=== PATIENT | male | born 1950 | race Caucasian/White ===

== ENCOUNTER 2017-01-18 02:16 | Inpatient (IN) | payer OTHER ==
[~2017-01-18] VITALS: Ht 175.3 cm; Wt 73.0 kg
[2017-01-18] VITALS (7 sets, daily range): BP systolic 132–168; BP diastolic 67–105; PULSE 70–97; TEMP 36.6–36.9; O2SAT 95–100; Ht 175.3 cm; Wt 73.0 kg
[2017-01-18] MEDS ORDERED: SODIUM CHLORIDE 0.9% 1000ML 1,000 ML IV STA (02:43)
--- NOTE | 2017-01-18 02:44 | EMERGENCY ROOM VISIT NOTE ---
History Report prepared by Emilio: Wilson Monroe Under the Supervision of: Dr. Nicholas Wright M.D. First contact with patient: 02:31 Chief Complaint: CARDIAC ASSESSMENT Stated Complaint: ICD WENT OFF AT 1AM 2X, DELIVERED SHOCK THERAPY Nursing Triage Summary: pt reports AICD delivered shock X 2 around 0100 after walkin to restroom, pt denies cp or sob History of Present Illness The patient is a 66 year old male who presents to the Emergency Room for a cardiac assessment because his ICD went off twice while he got up tonight. The patient states that he got up to go to the bathroom, and it went off, though he did not feel any palpitations. He additionally states that his blood pressure was 195/70. He states that he has had the pacemaker. for the past five years. The patient also states that he has sleep apnea and uses a CPAP. He states that he has felt fine recently, and he has not had any recent traumas. He states that he went on a long walk yesterday. The patient states that he takes aspiring every day, and he denies nay chest pain. The patient states that he has high blood pressure, though he denies any diabetes, high cholesterol, or history of smoking. He additionally states that he has a family history of heart attacks, and he had a history of a rheumatic fever when he was younger. He also states that he drank coffee over the weekend. Source of History: patient Onset: prior to arrival Position: other (global) Quality: other (cardiac assessment) Associated Symptoms: No chest pain Review of Systems See HPI for pertinent positives & negatives. A total of 10 systems reviewed and were otherwise negative. Past Medical & Surgical Medical Problems: (1) Elevated troponin (2) Pacemaker (3) Sleep apnea (4) Ventricular fibrillation Family History FH: heart attack Social History Smoking Status: Never Smoker Marital Status: Housing Status: lives with family Occupation Status: employed Current/Historical Medications Scheduled Ascorbic Acid (Ascorbic Acid), 500 MG PO DAILY Aspirin (Aspirin 81), 81 MG PO DAILY Dofetilide (Tikosyn), 500 MCG PO BID Fish Oil ([place]-3), 1 CAP PO DAILY Multiple Vitamins W/ Iron (Multi Vitamin with Iron), 1 TAB PO DAILY Olmesartan/Hctz (Benicar Hct 40/12.5), 1 TAB PO DAILY [sunny hips], 1 DOSE PO DAILY Scheduled PRN Ranitidine HCl (Ranitidine 75), 75 MG PO DAILY PRN for Heartburn Allergies Coded Allergies: Erythromycin (Verified Allergy, Unknown, unknown, 01/18/17) Physical Exam Vital Signs Date Time Temp Pulse Resp B/P (MAP) Pulse Ox O2 Delivery O2 Flow Rate FiO2 01/18/17 02:37 70 01/18/17 02:26 36.6 71 18 173/97 96 Room Air Physical Exam GENERAL: Patient is well appearing and in no acute distress. HEENT: No acute trauma, normocephalic atraumatic, mucous membranes moist, no nasal congestion, no scleral icterus. NECK: No stridor, no adenopathy, no meningismus, trachea is midline. LUNGS: No dyspnea. Clear to auscultation and equal bilaterally. No wheeze, no rhonchi. HEART: Regular rate and rhythm. No murmurs, rubs, gallops appreciated. ABDOMEN: Soft, nontender, bowel sounds positive, no masses appreciated, no peritonitis. BACK: No midline tenderness, no CVA tenderness EXTREMITIES: Normal motion all extremities, no cyanosis, no edema. NEUROLOGIC: Alert and oriented, no acute motor or sensory deficits, no focal weakness, cranial nerves grossly intact. SKIN: No rash, no jaundice, no diaphoresis. Medical Decision & Procedures ER Provider Diagnostic Interpretation: X ray results are stated below per my interpretation: Chest: 1 view: No infiltrate, no effusion, normal cardiac border. ICD in the left upper chest. Leads appear to be intact. Laboratory Results 01/18/17 02:56 Red Blood Count 5.48, Mean Corpuscular Volume 84.7, Mean Corpuscular Hemoglobin 28.3, Mean Corpuscular Hemoglobin Concent 33.4, Mean Platelet Volume 9.1, Neutrophils (%) (Auto) 65.6, Lymphocytes (%) (Auto) 24.3, Monocytes (%) (Auto) 8.1, Eosinophils (%) (Auto) 1.3, Basophils (%) (Auto) 0.5, Neutrophils # (Auto) 4.13, Lymphocytes # (Auto) 1.53, Monocytes # (Auto) 0.51, Eosinophils # (Auto) 0.08, Basophils # (Auto) 0.03 01/18/17 02:56 Test 01/18/17 02:56 White Blood Count 6.29 K/uL (4.8-10.8) Red Blood Count 5.48 M/uL (4.7-6.1) Hemoglobin 15.5 g/dL (14.0-18.0) Hematocrit 46.4 % (42-52) Mean Corpuscular Volume 84.7 fL (80-100) Mean Corpuscular Hemoglobin 28.3 pg (25-34) Mean Corpuscular Hemoglobin Concent 33.4 g/dl (32-36) Platelet Count 118 K/uL (130-400) Mean Platelet Volume 9.1 fL (7.4-10.4) Neutrophils (%) (Auto) 65.6 % Lymphocytes (%) (Auto) 24.3 % Monocytes (%) (Auto) 8.1 % Eosinophils (%) (Auto) 1.3 % Basophils (%) (Auto) 0.5 % Neutrophils # (Auto) 4.13 K/uL (1.4-6.5) Lymphocytes # (Auto) 1.53 K/uL (1.2-3.4) Monocytes # (Auto) 0.51 K/uL (0.11-0.59) Eosinophils # (Auto) 0.08 K/uL (0-0.5) Basophils # (Auto) 0.03 K/uL (0-0.2) RDW Standard Deviation 38.8 fL (36.4-46.3) RDW Coefficient of Variation 12.6 % (11.5-14.5) Immature Granulocyte % (Auto) 0.2 % Immature Granulocyte # (Auto) 0.01 K/uL (0.00-0.02) Prothrombin Time 11.2 SECONDS (9.0-12.0) Prothromb Time International Ratio 1.0 (0.9-1.1) Activated Partial Thromboplast Time 24.5 SECONDS (21.0-31.0) Partial Thromboplastin Ratio 0.9 Anion Gap 7.0 mmol/L (3-11) Est Creatinine Clear Calc Drug Dose 83.9 ml/min Estimated GFR () 104.7 Estimated GFR (Non- 90.4 BUN/Creatinine Ratio 23.9 (10-20) Calcium Level 8.8 mg/dl (8.5-10.1) Magnesium Level 2.1 mg/dl (1.8-2.4) Total Creatine Kinase 223 U/L (39-308) Creatine Kinase MB 12.3 ng/ml (0.5-3.6) Creatine Kinase MB Ratio 5.5 (0-3.0) Troponin I 1.110 ng/ml (0-0.045) Laboratory results as reviewed by me. Medications Administered Medications (Trade) Dose Ordered Sig/[place] Route Start Time Stop Time Status Last Admin Dose Admin Sodium Chloride 1,000 ml @ 999 mls/hr Q1H1M STAT IV 01/18/17 02:43 01/18/17 03:43 DC 01/18/17 02:43 999 MLS/HR Aspirin (Aspirin Chew) 324 mg NOW STAT PO 01/18/17 03:59 01/18/17 04:00 DC 01/18/17 04:05 324 MG Potassium Chloride (Klor-Con M10) 40 meq NOW STAT PO 01/18/17 04:13 01/18/17 04:20 DC 01/18/17 04:47 40 MEQ ECG Indication: other (cardiac assessment) Rate (beats per minute): 70 Rhythm: other (Atrial paced) Findings: no acute ischemic change, paced rhythm, no ectopy ED Course 0231: The patient was evaluated in room B10. A complete history and physical exam was performed. 0243: Sodium Chloride 1000 ml @ 999 mls/hr IV 0325: I reevaluated the patient, and he was feeling good and in no distress. 0346: I reassessed the patient, and he was feeling well. 0353: I discussed the patient's case with Dr. Noriega, Cardiology, and he agrees with holding off the heparin and to bring in the patient for further monitoring. 0359: Aspirin 324mg PO 0403: I reevaluated the patient, and he was doing well. 0404: Discussed the patient's case with Dr. Gonzalez. The patient will be evaluated for further treatment and disposition. 0423: I reassessed the patient, and he states that he is feeling well. Medical Decision Differential: NSR, SVT, PACs, PVCs, Cardiac Dysrhythmia, Endocrine Dysfunction, Eletrolyte/Metabolic Abnormality, Pulmonary Embolism, Infectious, GI, amongst other pathologies entertained. 66 yr old male with history of rheumatic fever as child who had bradycardia 5 yrs ago resulting in ICD/Pacer placement. Since then well on Tikosyn. This evening with two consecutive ICD discharges. No chest pain nor other ACS symptoms. Interrogation of ICD reveals Vfib episode at 0:34 which required second defibrillation to break. Trop and CK MB elevated, though this likely is defib. Reviewed with Cards and will hold off on heparin at this time. Will need to come in for close monitoring and cardiology evaluation. Patient and comfortable with this plan. Medication Reconcilliation Current Medication List: was personally reviewed by me Blood Pressure Screening Patient's blood pressure: Elevated blood pressure Monitored by hospitalist Consults Time Called: 035 Consulting Physician: Dr. Noriega, Cardiology Returned Call: [phone] I discussed the patient's case with Dr. Noriega, Cardiology, and he agrees with holding off the heparin and to bring in the patient for further monitoring. Additional Consults: Time Called: 040 Consulted Physician: Dr. Gonzalez Returned Call: [phone] Additional Comments: Discussed the patient's case with Dr. Gonzalez. The patient will be evaluated for further treatment and disposition. Impression Primary Impression: Ventricular fibrillation Additional Impressions: ICD (implantable cardioverter-defibrillator) discharge Elevated troponin Scribe Attestation The scribe's documentation has been prepared under my direction and personally reviewed by me in its entirety. I confirm that the note above accurately reflects all work, treatment, procedures, and medical decision making performed by me. Departure Information Dispostion Being Evaluated By Hospitalist Referrals Geo Hebert (PCP) Patient Instructions My [facility] Problem Qualifiers
[2017-01-18 03:09] LABS: BASO % 0.5 %; BASO ABS # 0.03 K/uL (0-0.2); COMPLETE YES; EOS % 1.3 %; HEMATOCRIT 46.4 % (42-52); IG% 0.2 %; LYMPH % 24.3 %; LYMPH ABS # 1.53 K/uL (1.2-3.4); MEAN CELL VOLUME 84.7 fL (80-100); MEAN CORPUSCULAR HEMOGLOBIN 28.3 pg (25-34); MEAN CORPUSCULAR HGB CONC 33.4 g/dl (32-36); MEAN PLATELET VOLUME 9.1 fL (7.4-10.4); MONO % 8.1 %; NEUT % 65.6 %; PLATELET COUNT 118 K/uL (130-400); RED BLOOD COUNT 5.48 M/uL (4.7-6.1); WHITE BLOOD COUNT 6.29 K/uL (4.8-10.8)
[2017-01-18 03:26] LABS: BUN/CREATININE RATIO 23.9 (10-20); CALCIUM 8.8 mg/dl (8.5-10.1); CREATININE 0.89 mg/dl (0.60-1.40); MAGNESIUM 2.1 mg/dl (1.8-2.4); POTASSIUM 3.4 mmol/L (3.5-5.1)
[2017-01-18] MEDS ORDERED: ASPI-435 PO (03:46)
[2017-01-18] MEDS ORDERED: DOFE500C PO (03:46)
[2017-01-18] MEDS ORDERED: RANI1TAB75 PO (03:46)
[2017-01-18] MEDS ORDERED: OMEG10007 PO (03:46)
[2017-01-18] MEDS ORDERED: rose hips PO (03:46)
[2017-01-18] MEDS ORDERED: MULT-1028 PO (03:46)
[2017-01-18] MEDS ORDERED: OLME40TA30 PO (03:46)
[2017-01-18] MEDS ORDERED: ASCO500T16 PO (03:46)
[2017-01-18 03:48] LABS: CKMB/CK RATIO 5.5 (0-3.0)
[2017-01-18 03:59] LABS: PARTIAL THROMBOPLASTIN RATIO 0.9; PROTHROMBIN TIME (PATIENT) 11.2 SECONDS (9.0-12.0)
[2017-01-18] MEDS ORDERED: ASPIRIN 324 MG CHEW PO STA (03:59)
[2017-01-18] MEDS ORDERED: POTASSIUM CHLORIDE 10 MEQ TABCR PO STA (04:13)
[2017-01-18] MEDS ORDERED: NITROGLYCERIN 0.4 MG SL PER TAB CHARGE SL PRN (04:15)
[2017-01-18] MEDS ORDERED: MoRPHine SULFATE 2 MG/ML CARP IV PRN (04:15)
[2017-01-18] MEDS ORDERED: POLYETHYLENE (MIRALAX) 17 GM PACK PO PRN (04:15)
[2017-01-18] MEDS ORDERED: ONDANSETRON INJ 2 MG/ML 2 ML VIAL IV PRN (04:15)
[2017-01-18] MEDS ORDERED: ACETAMINOPHEN 325 MG TAB PO PRN (04:15)
--- NOTE | 2017-01-18 05:36 | History and Physical ---
History & Physical Date & Time of Service: Jan 18, 2017 at 05:29 Chief Complaint: Elevated Troponin, Ventricular Fibrillation Primary Care Physician: Geo Hebert History of Present Illness Source: patient, family This is a 66 yo m that has a history of pacer/ ICD placement in 2011 for sick sinus syndrome that is presenting to us after having experienced two separate episodes of discharges from the ICD for arrhythmias. The patient had suffered from sick sinus syndrome in the past secondary to a rheumatic fever infection he had as a child. He was sent to [facility] where a ICD was placed. His physician has since retired and he has not been following with an EP bath mixer since. He has never had his ICD discharge in the past. He notes that this morning he was shocked approx a minute apart and was concerned so he came to the ED for evaluation. He denies having any chest pain, SOB, palpitations, presyncope prior to the discharges. While in the ED, Dr Noriega was contacted by the ED physician and plan was for observation. Patient currently denies any chest pain and " feels well'. Past Medical/Surgical History Sick sinus syndrome HTN Pacer/ ICD rheumatic fever Family History FH: heart attack Social History Smoking Status: Never Smoker Smokeless Tobacco Use: No Alcohol Use: none Drug Use: none Marital Status: Housing status: lives with family Occupational Status: employed Immunizations History of Influenza Vaccine: Unknown History of Tetanus Vaccine?: Unknown History of Pneumococcal: Unknown History of Hepatitis B Vaccine: Unknown Multi-Drug Resistant Organisms History of MDRO: No Allergies Coded Allergies: Erythromycin (Verified Allergy, Unknown, unknown, 01/18/17) Home Medications Scheduled Ascorbic Acid (Ascorbic Acid), 500 MG PO DAILY Aspirin (Aspirin 81), 81 MG PO DAILY Dofetilide (Tikosyn), 500 MCG PO BID Fish Oil ([place]-3), 1 CAP PO DAILY Metoprolol Succ (Toprol Xl) (Toprol-Xl), 25 MG PO DAILY Multiple Vitamins W/ Iron (Multi Vitamin with Iron), 1 TAB PO DAILY Olmesartan/Hctz (Benicar Hct 40/12.5), 1 TAB PO DAILY [sunny hips], 1 DOSE PO DAILY Scheduled PRN Ranitidine HCl (Ranitidine 75), 75 MG PO DAILY PRN for Heartburn Review of Systems Constitutional: No fever Eyes: No worsening of vision ENT: No hearing loss Respiratory: No cough, No sputum, No wheezing, No shortness of breath, No dyspnea on exertion, No dyspnea at rest Cardiovascular: + problem reported, No chest pain Abdomen: No pain, No nausea, No vomiting, No diarrhea, No constipation Musculoskeletal: No joint pain, No muscle pain Genitourinary - Male: No hematuria Neurologic: No weakness, No numbness/tingling, No balance problems Psychiatric: No depression symptoms Endocrine: No fatigue Hematologic / Lymphatic: No abnormal bleeding/bruising Integumentary: No rash Physical Exam Vital Signs Date Time Temp Pulse Resp B/P (MAP) Pulse Ox O2 Delivery O2 Flow Rate FiO2 01/18/17 04:17 71 18 157/97 97 Room Air 01/18/17 02:37 70 01/18/17 02:26 36.6 71 18 173/97 96 Room Air General Appearance: no apparent distress Head: normocephalic, atraumatic Eyes: normal inspection ENT: normal ENT inspection Neck: supple Respiratory/Chest: normal breath sounds, no respiratory distress, no accessory muscle use Cardiovascular: regular rate, rhythm, no murmur, normal peripheral pulses Abdomen/GI: normal bowel sounds, non tender, soft, no organomegaly Back: normal inspection, no CVA tenderness Extremities/Musculoskelatal: no calf tenderness, no pedal edema, normal range of motion Neurologic/Psych: alert, normal mood/affect, oriented x 3 Skin: normal color, warm/dry, no rash Lymphatic: no adenopathy Diagnostics Laboratory Results Results Past 24 Hours Test 01/18/17 02:56 Range/Units White Blood Count 6.29 4.8-10.8 K/uL Red Blood Count 5.48 4.7-6.1 M/uL Hemoglobin 15.5 14.0-18.0 g/dL Hematocrit 46.4 42-52 % Mean Corpuscular Volume 84.7 80-100 fL Mean Corpuscular Hemoglobin 28.3 25-34 pg Mean Corpuscular Hemoglobin Concent 33.4 32-36 g/dl Platelet Count 118 130-400 K/uL Mean Platelet Volume 9.1 7.4-10.4 fL Neutrophils (%) (Auto) 65.6 % Lymphocytes (%) (Auto) 24.3 % Monocytes (%) (Auto) 8.1 % Eosinophils (%) (Auto) 1.3 % Basophils (%) (Auto) 0.5 % Neutrophils # (Auto) 4.13 1.4-6.5 K/uL Lymphocytes # (Auto) 1.53 1.2-3.4 K/uL Monocytes # (Auto) 0.51 0.11-0.59 K/uL Eosinophils # (Auto) 0.08 0-0.5 K/uL Basophils # (Auto) 0.03 0-0.2 K/uL RDW Standard Deviation 38.8 36.4-46.3 fL RDW Coefficient of Variation 12.6 11.5-14.5 % Immature Granulocyte % (Auto) 0.2 % Immature Granulocyte # (Auto) 0.01 0.00-0.02 K/uL Prothrombin Time 11.2 9.0-12.0 SECONDS Prothromb Time International Ratio 1.0 0.9-1.1 Activated Partial Thromboplast Time 24.5 21.0-31.0 SECONDS Partial Thromboplastin Ratio 0.9 Sodium Level 146 136-145 mmol/L Potassium Level 3.4 3.5-5.1 mmol/L Chloride Level 110 98-107 mmol/L Carbon Dioxide Level 29 21-32 mmol/L Anion Gap 7.0 3-11 mmol/L Blood Urea Nitrogen 21 7-18 mg/dl Creatinine 0.89 0.60-1.40 mg/dl Est Creatinine Clear Calc Drug Dose 83.9 ml/min Estimated GFR () 104.7 Estimated GFR (Non- 90.4 BUN/Creatinine Ratio 23.9 10-20 Random Glucose 101 70-99 mg/dl Calcium Level 8.8 8.5-10.1 mg/dl Magnesium Level 2.1 1.8-2.4 mg/dl Total Creatine Kinase 223 39-308 U/L Creatine Kinase MB 12.3 0.5-3.6 ng/ml Creatine Kinase MB Ratio 5.5 0-3.0 Troponin I 1.110 0-0.045 ng/ml Impression Assessment and Plan This is a 66 yo m that possibly suffered from an arrhythmia which led to a discharge of his ICD which was placed for sick sinus syndrome Arrhythmia with elevated troponin - tele status - consult [facility] - device interrogation - trend troponin HTN - continue benicar or its equivalent - continue asa 81 mg daily DVT Prophylaxis - heparin bid Attending Addendum: I have physically seen and examined this patient, have supervised the medical residents activities, and agree with the H&P as noted above with the following exceptions as noted. The patient presents to the emergency department after 2 episodes of ICD firing approximately 1 minute apart the morning of admission, which has never happened to him in the past. The patient denies chest pain, palpitations, shortness of breath, cough, lower extremity swelling, sore throat, fevers, chills, sweats, weight change, fatigue , nausea, vomiting, abdominal pain, pelvic pain, blood in urine or stool, dysuria, urinary frequency or urgency, lightheadedness, dizziness, headache, memory loss, rash, abnormal bruising or bleeding, imbalance, focal or generalized weakness, numbness or tingling in arms or legs, generalized arthralgias or myalgias, back or neck pain, night sweats. The review of systems is otherwise negative other than for that already noted above, and at least 10 systems have been reviewed. The patient is awake, well-developed and adequately nourished, alert and oriented 3, normocephalic and atraumatic, lying in bed and in no acute distress. HEENT--PERRL, EOMI, mucous membranes and oropharynx dry. Neck--supple, no JVD or bruits, thyroid normal, trachea midline, no adenopathy. Heart--normal S1 and S2, no extra beats, no murmurs, rubs or gallops. Lungs--clear bilaterally with good air movement, no respiratory distress, no accessory muscle use. Abdomen--normal bowel sounds and soft, nontender and nondistended, no hernias or masses, no organomegaly. Extremities--no cyanosis, clubbing or edema. There are good distal pulses b/l. Dermatologic--normal skin turgor, normal color, warm and dry, no abnormal lymph nodes, no rash. Neurologic--cranial nerves II through XII grossly intact. Rheumatologic--normal range of motion, nontender, muscles and joints. Psychiatric--normal affect. Assessment and Plan: 1. Sick sinus syndrome/status post AICD placement/status post 2 discharges today/elevated troponin/hypertension--The patient will be admitted to telemetry for serial cardiac enzymes, cardiac rhythm monitoring and a 2-D echocardiogram with Dopplers. Continue aspirin 81 mg by mouth daily, Benicar 40 mg by mouth daily and Tikosyn 500 g by mouth twice a day. Consult cardiology. Device interrogation. Level of Care Telemetry Advanced Directives Existing Advance Directive: No Existing Living Will: No Existing Power of Technical Proposal Writer: No Resuscitation Status FULL RESUSCITATION VTE Prophylaxis VTE Risk Assessment Done? Y/N: Yes Risk Level: Moderate Given or contraindicated: Unfractionated heparin SQ Social Service Consult None Apply Note Total Time: Critical Care 30 - 74 minutes Additional Copies To Geo Hebert
[2017-01-18] MEDS ORDERED: RANITIDINE HCL 150 MG TAB PO PRN (05:45)
--- NOTE | 2017-01-18 07:16 | DIAGNOSTIC IMAGING REPORT ---
SINGLE VIEW CHEST CLINICAL HISTORY: ICD defibrillator. FINDINGS: An AP, portable, upright chest radiograph is obtained. No prior studies are available for comparison at the time of dictation. The examination is degraded by portable technique and patient rotation. A 2-lead cardiac AICD is in place. This partially obscures the left lower chest. The heart is enlarged and there is atherosclerotic calcification of the thoracic aorta. The pulmonary vasculature is noncongested. The lungs and pleural spaces are clear. No pneumothorax is seen. The bony thorax is grossly intact. IMPRESSION: 1. Cardiomegaly and AICD. There is no radiographic evidence of congestive failure. 2. No airspace consolidation or pleural effusion is identified. Electronically signed by: Tim Lei M.D. 01/18/2017 7:14 AM Dictated Date/Time: 01/18/2017 7:13 AM
[2017-01-18] MEDS ORDERED: [UNRECOGNIZED DRUG - OTHER] PO SCH (09:00)
[2017-01-18] MEDS ORDERED: ASPIRIN 81 MG ECTAB PO SCH ×2 (09:00→21:00)
[2017-01-18] MEDS ORDERED: HYDROCHLOROTHIAZIDE 25 MG TAB PO SCH (09:00)
[2017-01-18] MEDS ORDERED: HEPARIN SOD 5000 UNIT/0.5 ML CARP SQ SCH ×2 (09:00)
[2017-01-18] MEDS ORDERED: CEROVITE ADV FORMULA TAB PO SCH (09:00)
[2017-01-18] MEDS ORDERED: OLMESARTAN MEDOXOMIL 40 MG TAB PO SCH (09:00)
[2017-01-18] MEDS ORDERED: OMEGA-3 (PURIFIED FISH OIL) 1 GM CAP PO SCH (09:00)
[2017-01-18] MEDS ORDERED: ASCORBIC ACID 500 MG TAB PO SCH (09:00)
[2017-01-18] MEDS ORDERED: DOFETILIDE 125 MCG CAP PO SCH (09:00)
[2017-01-18] MEDS ORDERED: NURSING DECISION MEDICATION ORDER SCH (09:30)
--- NOTE | 2017-01-18 10:19 | Medical Student: [facility] ---
Med Student Progress Note Date of Service Jan 18, 2017. Subjective Pt evaluation today including: conversation w/ patient, physical exam, chart review, lab review, review of studies Pain: patient denies PO Intake: tolerating PO diet Voiding: no voiding problems, no incontinence Anthony Ledbetter is a 66 yo male, with PMHx of bradycardia (s/p ICD/defibrillator placement July 2011), HTN, and VANCE, presented to the ED complaining of his defibrillator discharging twice last night between midnight and 1am. He notes he was awake before the event, secondary to needing to use the restroom, and denies any presyncopal symptoms. 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 Patient denies any previous defibrillations since placement, any chest pain/ palpitations, any recent symptoms, or being recently followed by a veterinary assistant. Patient reports drinking slightly more caffeine over the weekend than usual (2-3 cups of regular coffee, instead of his 1 cup of decaf and 1 cup of regular coffee at baseline). He notes he takes his Tikosyn (Dofetilide) 500 Mcg Cap 500 Mcg PO BID as prescribed. Patient denies any associated symptoms of fever, chills, fatigue, vision/hearing problems, sore throat, nasal congestion, post nasal drip, cough, shortness of breath, wheezing, chest pain, palpitations , swollen lymph nodes, rash, abdominal pain, nausea, vomiting, diarrhea, constipation, changes in his urination/stooling, and difficulty moving his extremities/joints. 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 Review of Systems Constitutional: No fever, No chills, No sweats, No weight loss, No fatigue Eyes: No worsening of vision, No eye pain, No redness ENT: No hearing loss, No nasal symptoms, No sore throat Respiratory: No cough, No shortness of breath Cardiac: No chest pain, No edema, No palpitations Abdomen: No pain, No nausea, No vomiting, No diarrhea, No constipation Musculoskeletal: No joint pain, No muscle pain, No swelling Male : No dysuria, No urinary frequency, No incontinence, No nocturia more than once/night (at baseline awakens multiple times to urinate each night ( patient thinks secondary to water intake during day)) Neurologic: No memory loss, No weakness, No numbness/tingling Heme: No abnormal bleeding/bruising, No swollen lymph nodes Endo: No fatigue, No excessive urination (at baseline) Skin: No rash, No itch Objective Vital Signs Date Time Temp Pulse Resp B/P (MAP) Pulse Ox O2 Delivery O2 Flow Rate FiO2 01/18/17 08:03 36.9 76 18 151/88 (109) 95 01/18/17 08:00 Room Air 01/18/17 05:29 36.6 70 18 137/67 95 Room Air 01/18/17 04:17 71 18 157/97 97 Room Air 01/18/17 02:37 70 01/18/17 02:26 36.6 71 18 173/97 96 Room Air Physical Exam General Appearance: WD/WN, no apparent distress Eyes: bilateral eyes normal inspection, bilateral eyes PERRL (small pupils, difficult to to quantify reaction to light) ENT: normal ENT inspection, hearing grossly normal, pharynx normal Neck: supple, no adenopathy Respiratory/Chest: chest non-tender, lungs clear, normal breath sounds, no respiratory distress, no accessory muscle use Cardiovascular: regular rate, rhythm, no edema, no murmur Abdomen: normal bowel sounds, non tender, soft Extremities: normal range of motion, non-tender, normal inspection, no pedal edema, no calf tenderness Neurologic/Psychiatric: no motor/sensory deficits, alert, normal mood/affect, oriented x 3 Skin: normal color, warm/dry, no rash Lymphatic: no adenopathy Laboratory Results Last 24 Hours Test 01/18/17 02:56 01/18/17 08:01 White Blood Count 6.29 K/uL Red Blood Count 5.48 M/uL Hemoglobin 15.5 g/dL Hematocrit 46.4 % Mean Corpuscular Volume 84.7 fL Mean Corpuscular Hemoglobin 28.3 pg Mean Corpuscular Hemoglobin Concent 33.4 g/dl Platelet Count 118 K/uL Mean Platelet Volume 9.1 fL Neutrophils (%) (Auto) 65.6 % Lymphocytes (%) (Auto) 24.3 % Monocytes (%) (Auto) 8.1 % Eosinophils (%) (Auto) 1.3 % Basophils (%) (Auto) 0.5 % Neutrophils # (Auto) 4.13 K/uL Lymphocytes # (Auto) 1.53 K/uL Monocytes # (Auto) 0.51 K/uL Eosinophils # (Auto) 0.08 K/uL Basophils # (Auto) 0.03 K/uL RDW Standard Deviation 38.8 fL RDW Coefficient of Variation 12.6 % Immature Granulocyte % (Auto) 0.2 % Immature Granulocyte # (Auto) 0.01 K/uL Prothrombin Time 11.2 SECONDS Prothromb Time International Ratio 1.0 Activated Partial Thromboplast Time 24.5 SECONDS Partial Thromboplastin Ratio 0.9 Sodium Level 146 mmol/L Potassium Level 3.4 mmol/L Chloride Level 110 mmol/L Carbon Dioxide Level 29 mmol/L Anion Gap 7.0 mmol/L Blood Urea Nitrogen 21 mg/dl Creatinine 0.89 mg/dl Est Creatinine Clear Calc Drug Dose 83.9 ml/min Estimated GFR () 104.7 Estimated GFR (Non- 90.4 BUN/Creatinine Ratio 23.9 Random Glucose 101 mg/dl Calcium Level 8.8 mg/dl Magnesium Level 2.1 mg/dl Total Creatine Kinase 223 U/L Creatine Kinase MB 12.3 ng/ml Creatine Kinase MB Ratio 5.5 Troponin I 1.110 ng/ml 3.580 ng/ml Medications Active Reported [sunny hips] 1 Dose PO DAILY [place]-3 (Fish Oil) 1 Ea Cap 1 Cap PO DAILY Aspirin 81 (Aspirin) 81 Mg Tab 81 Mg PO DAILY Ascorbic Acid 500 Mg Tab 500 Mg PO DAILY Benicar Hct 40/12.5 (Olmesartan/HCTZ) Tab 1 Tab PO DAILY Multi Vitamin with Iron (Multiple Vitamins W/ Iron) 1 Tab Tab 1 Tab PO DAILY Ranitidine 75 (Ranitidine HCl) 75 Mg Tab 75 Mg PO DAILY PRN Tikosyn (Dofetilide) 500 Mcg Cap 500 Mcg PO BID Assessment and Plan Assessment and Plan: Anthony Ledbetter is a 66 yo male, with PMHx of bradycardia (s/p ICD placement July 2011), HTN, and VANCE, presented to the ED complaining of his defibrillator discharging twice last night between midnight and 1am. Review of his defibrillator data showed an episode of ventricular fibrillation (as categorized by ICD) at 00:34 this morning, which took two defibrillations to correct. Patient current states he is feeling well. Arrhythmia, episode of ventricular fibrillation - Interrogation of defibrillator showed episode of V-fib at 00:34 this morning. - CXR (portable) findings: "Cardiomegaly and AICD. There is no radiographic evidence of congestive failure. No airspace consolidation or pleural effusion is identified." - EKG findings: Atrial-paced rhythm, Abnormal ECG (pacemaker spikes), No previous ECGs available - Monitor troponin (1.110, 3.580) and CK-MB (12.3), elevated secondary to defibrillation. - Consult Cardiology about ICD functionality/interrogation, with possible testing of ICD. - Continue home medication (Tikosyn (Dofetilide) 500 Mcg Cap 500 Mcg PO BID) - Completed 1 bolus of IV NS fluid, 324mg chewed ASA, and 40 meq of KCl in ED. HTN, chronic - Continue home medications (Benicar Hct 40/12.5 (Olmesartan/HCTZ) Tab 1 Tab PO DAILY, Aspirin 81 (Aspirin) 81 Mg Tab 81 Mg PO DAILY) - Monitor BPs while in-patient (157/97, 137/67, 151/88) GERD, distant history, episodic - Continue home medication (Ranitidine 75 (Ranitidine HCl) 75 Mg Tab 75 Mg PO) as needed for symptoms DVT prophylaxis - Heparin (Heparin Sodium (Porcine) (Heparin Sq 5000 Unit/0.5ml) BID) ATTENDING NOTE: Please see resident physician note and my attestation of the same date. Discharge planning: home
[2017-01-18] MEDS ORDERED: NURSING VERBAL MED ORDER ONE (11:45)
[2017-01-18] MEDS ORDERED: PROPOFOL IV EMULSION 10 MG/ML 20 ML VIAL IV ONE (15:28)
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
--- NOTE | 2017-01-18 16:36 | Anesthesiology Progress Note ---
Anesthesia Post Op Note Date & Time Jan 18, 2017 at 16:36 Vital Signs Pain Intensity: 0 Vital Signs Past 12 Hours Date Time Temp Pulse Resp B/P (MAP) Pulse Ox O2 Delivery O2 Flow Rate FiO2 01/18/17 16:10 71 16 132/84 (100) 98 Room Air 01/18/17 16:00 70 16 120/84 (96) 98 Room Air 01/18/17 15:55 70 18 146/87 100 Nasal Cannula 4 01/18/17 15:50 97 18 168/105 100 Nasal Cannula 4 01/18/17 15:30 36.8 70 20 156/87 (110) 97 Room Air 01/18/17 12:12 36.8 72 18 150/94 (112) 96 01/18/17 12:00 Room Air 01/18/17 08:03 36.9 76 18 151/88 (109) 95 01/18/17 08:00 Room Air 01/18/17 05:29 36.6 70 18 137/67 95 Room Air Notes Mental Status: alert / awake / arousable, participated in evaluation Pt Amnestic to Procedure: Yes Nausea / Vomiting: adequately controlled Pain: adequately controlled Airway Patency, RR, SpO2: stable & adequate BP & HR: stable & adequate Hydration State: stable & adequate Anesthetic Complications: no major complications apparent
[2017-01-18] MEDS ORDERED: METO25TA3 PO (16:53)
--- NOTE | 2017-01-18 17:02 | Discharge Instructions ---
Discharge Instructions Date of Service Jan 18, 2017. Admission Reason for Admission: Elevated Troponin, Ventricular Fibrillation Discharge Discharge Diagnosis / Problem: ICD firing, paroxsymal atrial tachycardia/ fibrillation and ventricular tach Discharge Goals Goal(s): Improve function Activity Recommendations Activity Limitations: per Instructions/Follow-up section Exercise/Sports Limitations: until after follow-up appointment (light exercise only until after follow up with cardiology) . Instructions / Follow-Up Instructions / Follow-Up You were admitted for firing of ICD. Rhythm was both atrial and ventricular tachycardia. ICD was thought to inappropriately fire. You were started on metoprolol for this. You underwent a defibrillation threshold test with showed appropriate firing. You will be followed up by [facility]iology. Appointment to be arranged. If you do not hear back in the next week please call the office on [phone], [address] [place] [id number] Wednesday through Wednesday, from 8:30 am to 5:00 pm Current Hospital Diet Patient's current hospital diet: AHA Diet (Heart Healthy), Low Sodium Diet (2gm Na) Discharge Diet Recommended Diet: AHA Diet (Heart Healthy) Pending Studies Studies pending at discharge: no Work Instructions Additional Instructions: Graduated return recommended to full activity as tolerated Medical Emergencies . Who to Call and When: Medical Emergencies: If at any time you feel your situation is an emergency, please call 911 immediately. . Non-Emergent Contact Non-Emergency issues call your: Manager Sales And Marketing . . "Provider Documentation" section prepared by Riaz Glasgow. . VTE Core Measure Inpt VTE Proph given/why not?: Unfractionated heparin SQ
--- NOTE | 2017-01-18 17:19 | Procedure Note ---
Procedure Note Date of Service Jan 18, 2017. Procedure Note Procedure performed: Defibrillation threshold testing Staff server systems administrator: Indication: Patient is 66-year-old gentleman with a prior history of ICD implant. He had an event last evening concerning for ventricular fibrillation with failed therapy. Procedure detail: Patient was informed of the risks benefits and alternatives to the intended procedure, he understood such which proceed. He was taken to the cardiac catheterization holding area. He underwent administration of a general anesthetic by the Anesthesiology Service. Once appropriately anesthetized the patient underwent induction to ventricular fibrillation with successful defibrillation by his ICD. Defibrillation was performed at 14 joules. Impression: Defibrillation threshold at or below 14 joules Normal device function
--- NOTE | 2017-01-18 22:22 | Discharge Summary ---
Discharge Summary Date of Service Jan 18, 2017. (Riaz Glasgow MD) Discharge Summary Admission Date: Jan 18, 2017 at 04:15 Discharge Date: Jan 18, 2017 Discharge Disposition: Home Principal Diagnosis: ICD firing, Atrial and ventricular tachycardia Procedures: Defibrillation threshold testing - normal device functioning Consultations: Cardiology - Dr Bella (Riaz Glasgow MD) Medication Reconciliation New Medications: Metoprolol Succ (Toprol Xl) (Toprol-Xl) 25 Mg Tabcr 25 MG PO DAILY, #30 TAB Continued Medications: Ascorbic Acid (Ascorbic Acid) 500 Mg Tab 500 MG PO DAILY, TAB Aspirin (Aspirin 81) 81 Mg Tab 81 MG PO DAILY Dofetilide (Tikosyn) 500 Mcg Cap 500 MCG PO BID Fish Oil ([place]-3) 1 Ea Cap 1 CAP PO DAILY, CAP Multiple Vitamins W/ Iron (Multi Vitamin with Iron) 1 Tab Tab 1 TAB PO DAILY Olmesartan/Hctz (Benicar Hct 40/12.5) Tab 1 TAB PO DAILY, TAB Ranitidine HCl (Ranitidine 75) 75 Mg Tab 75 MG PO DAILY PRN for Heartburn [sunny hips] () 1 DOSE PO DAILY Discharge Exam No acute complaints. Pt feels well this morning. Denies any chest pain, shortness of breath, orthopnea, PND, palpitation, claudications, presyncope or syncopal events. Asymptomatic before ICD firing yesterday. ROS: All systems reviewed and otherwise negative Physical Exam: General Appearance: WD/WN, no apparent distress Neck: supple, no JVD Respiratory/Chest: chest non-tender, lungs clear, normal breath sounds, no respiratory distress, no accessory muscle use Cardiovascular: regular rate, rhythm, no murmur, normal peripheral pulses Abdomen / GI: normal bowel sounds, non tender, soft Extremities: no calf tenderness, normal capillary refill, no pedal edema Neurologic/Psychiatric: rd scientist II-XII nml as tested, no motor/sensory deficits , alert, oriented x 3 Skin: normal color, warm/dry, no rash (Riaz Glasgow MD) Hospital Course Mr Ledbetter was admitted after his ICD fired twice. Pacemaker interrogation suggested this was an inappropriate ICD firing for an atrial tachycardia/ fibrillation. He underwent defibrillation threshold testing which showed normal device functioning. He was started on metoprolol succinate 25mg PO daily for his atrial tachycardia. His fibrillation episodes are not throught to be of sufficient length to warrant anticoagulation however he will follow up with cardiology regarding this. Follow up as below. Total Time Spent: Less than 30 minutes This includes examination of the patient, discharge planning, medication reconciliation, and communication with other providers. (Riaz Glasgow MD) Resident Physician Supervision Note: I was present with the resident physician during the history and exam. I discussed the case with the resident and agree with the findings and plan as documented in the note. Any exceptions or clarifications are listed here: [None ] Documented By: Toro Apodaca Total Time Spent: Less than 30 minutes (Toro Apodaca,D.O.) Discharge Instructions Please refer to the electronic Patient Visit Report (Discharge Instructions) for additional information. (Riaz Glasgow MD) Follow-Up To be arranged by [facility] Cardiology - Dr Bella. Information given to patient to contact office if he does not hear anything over the next week. (Riaz Glasgow MD) Additional Copies To Alden Bella MD; Geo Hebert
== END 2017-01-18 17:43 | disposition home or self-care (01) | DRG 310 ==
LOC: C.EDB 02:20 → C.2T 04:15 → ENRESERV 04:21
PROVIDERS: ADMIT Hospitalist; ATTEND Family Medicine
PROC: 4B02XTZ Measurement of Cardiac Defibrillator, External Approach (ICD-10-PCS; principal; 2017-01-18 15:35)
DX: I47.1 Supraventricular tachycardia (principal); I49.01 Ventricular fibrillation; I10 Essential (primary) hypertension; Z95.0 Presence of cardiac pacemaker; Z79.82 Long term (current) use of aspirin; G47.33 Obstructive sleep apnea (adult) (pediatric)